=== PATIENT | female | born 1940 | race American Indian/Alaskan Native ===

== ENCOUNTER 2017-09-04 10:34 | Emergency (ER) | payer MEDICARE ==
[2017-09-04 11:17] LABS: Basophils # (Auto) 0.1 K/mm3 (0.0-0.1); Basophils % (Auto) 1.1 % (0.0-1.8); Eosinophils # (Auto) 0.2 K/mm3 (0.0-0.4); Eosinophils % (Auto) 2.9 % (0.0-4.3); Hematocrit 41.5 % (30.3-42.9); Hemoglobin 13.6 gm/dl (10.1-14.3); Lymphocytes # (Auto) 2.8 K/mm3 (1.2-5.4); Lymphocytes % (Auto) 47.3 % (13.4-35.0); Mean Corpuscular HGB Conc 33 % (30-34); Mean Corpuscular Hemoglobin 30 pg (28-32); Mean Corpuscular Volume 90 fl (79-97); Monocytes # (Auto) 0.5 K/mm3 (0.0-0.8); Monocytes % (Auto) 9.2 % (0.0-7.3); Platelet Count 272 K/mm3 (140-440); Red Cell Distribution Width 13.7 % (13.2-15.2)
[2017-09-04 11:26] LABS: Bilirubin,Urine NEG (Negative); Blood,Urine NEG (Negative); Color,Urine Yellow (Yellow); Mucus,Urine FEW /HPF; Protein,Urine <15 mg/dL mg/dL (Negative); Urobilinogen,Urine < 2.0 mg/dL (<2.0)
[2017-09-04 11:31] LABS: Calcium 9.3 mg/dL (8.4-10.2)
[2017-09-04] MEDS ORDERED: ZOFRAN IV ONE (11:51)
[2017-09-04] MEDS ORDERED: SUBLIMAZE IV ONE (11:51)
--- NOTE | 2017-09-04 11:56 | Emergency Department Report ---
HPI - General Chief Complaint: Abdominal Pain Time Seen by Provider: 09/04/17 11:38 - HPI HPI: Room 1 The patient is a 76-year-old female presenting with chief complaint of left flank pain. The patient admits she suffered from intermittent left flank pain for the past 4-5 years and states she's never been given a diagnosis. The patient states her most recent episode started approximately 2 months ago and has been constant. Patient denies nausea vomiting or diarrhea. The patient gets her pain a score of 10/10. The patient states she went to [facility] 4 days ago and had an x-ray performed. Patient states she was told she had a "pinched nerve" and given a prescription for a muscle relaxer. Patient states the pain medicine has not helped. The patient states she has an appointment to see her primary physician tomorrow but family urged her to come to the hospital given her continued pain. Patient denies any history of fever or preceding trauma. Location: Left flank Duration: [See above] Quality: Pain Severity: 10/10 Modifying factors: [see above] Context: [see above] Mode of transportation: [not driving] ED Past Medical Hx - Past Medical History Previous Medical History?: Yes Hx Hypertension: Yes Hx Renal Disease: Yes Hx Kidney Stones: Yes Additional medical history: Lung disease, KIDNEYSTONES LEFT SIDE - Surgical History Past Surgical History?: Yes Hx Cholecystectomy: Yes Additional Surgical History: Kidney stone removal with complication - Family History Family history: no significant - Social History Smoking Status: Never Smoker Substance Use Type: None - Medications Home Medications: Home Medications Medication Instructions Recorded Confirmed Last Taken Type amLODIPine [Norvasc] 10 mg PO DAILY 01/23/16 09/04/17 01/22/16 History Aspirin/Acetaminophen/Caffeine 1 each PO BID PRN 09/04/17 09/04/17 09/03/17 History [Goodlorraine's Ex-Str Powder Packet] Cyclobenzaprine [Flexeril] 10 mg PO TID PRN 09/04/17 09/04/17 09/03/17 History HYDROcodone/APAP 5-325 [[place] 1 - 2 each PO Q6HR PRN #14 tablet 09/04/17 Unknown Rx 5/325] Ibuprofen [Motrin 800 MG tab] 800 mg PO Q8HR PRN #20 tablet 09/04/17 Unknown Rx ED Review of Systems ROS: Stated complaint: KIDNEYSTONE Other details as noted in HPI Constitutional: denies: fever Eyes: denies: eye pain ENT: denies: throat pain Cardiovascular: denies: chest pain Gastrointestinal: abdominal pain. denies: nausea, vomiting, diarrhea Genitourinary: denies: dysuria Musculoskeletal: back pain Neurological: denies: headache Physical Exam - Physical Exam Vital Signs: Vital Signs 09/04/17 09/04/17 10:38 11:17 Temperature 99.2 F Pulse Rate 83 72 Respiratory 20 16 Rate Blood Pressure 182/98 Blood Pressure 165/109 [Left] O2 Sat by Pulse 99 97 Oximetry Physical Exam: GENERAL: The patient is well-developed well-nourished female lying on stretcher not appearing to be in acute distress. [] HEENT: Normocephalic. Atraumatic. Extraocular motions are intact. Patient has moist mucous membranes. NECK: Supple. Trachea midline CHEST/LUNGS: Clear to auscultation. There is no respiratory distress noted. HEART/CARDIOVASCULAR: Regular. There is no tachycardia. There is no gallop rub or murmur. ABDOMEN: Abdomen is soft, with mild discomfort to palpation in the left upper quadrant. Patient has normal bowel sounds. There is no abdominal distention. SKIN: There is no rash. There is no edema. There is no diaphoresis. NEURO: The patient is awake, alert, and oriented. The patient is cooperative. The patient has normal speech MUSCULOSKELETAL: There is no evidence of acute injury. ED Course Vital Signs 09/04/17 09/04/17 10:38 11:17 Temperature 99.2 F Pulse Rate 83 72 Respiratory 20 16 Rate Blood Pressure 182/98 Blood Pressure 165/109 [Left] O2 Sat by Pulse 99 97 Oximetry ED Medical Decision Making - Lab Data Result diagrams: 09/04/17 10:54 09/04/17 10:54 Laboratory Tests 09/04/17 09/04/17 09/04/17 10:41 10:54 10:54 WBC 5.9 RBC 4.60 Hgb 13.6 Hct 41.5 MCV 90 MCH 30 MCHC 33 RDW 13.7 Plt Count 272 Lymph % (Auto) 47.3 H [place] % (Auto) 9.2 H Eos % (Auto) 2.9 Baso % (Auto) 1.1 Lymph # 2.8 [place] # 0.5 Eos # 0.2 Baso # 0.1 Seg Neutrophils % 39.5 L Seg Neutrophils # 2.3 Sodium 135 L Potassium 4.0 Chloride 100.0 Carbon Dioxide 27 Anion Gap 12 BUN 19 H Creatinine 1.1 Estimated GFR 58 BUN/Creatinine Ratio 17 Glucose 128 H Calcium 9.3 Urine Color Yellow Urine Turbidity Clear Urine pH 6.0 Ur Specific [place] 1.015 Urine Protein <15 mg/dl Urine Glucose (UA) Neg Urine Ketones Neg Urine Blood Neg Urine Nitrite Neg Urine Bilirubin Neg Urine Urobilinogen < 2.0 Ur Leukocyte Esterase Neg Urine WBC (Auto) 1.0 Urine RBC (Auto) 1.0 U Epithel Cells (Auto) < 1.0 Urine Mucus Few - Radiology Data Radiology results: report reviewed (CT abdomen and pelvis), image reviewed (CT abdomen and pelvis) [facility] [address] [place] [address] Cat Scan Report Signed Patient: BLANCA GTZ MR#: [id number] : 1940 Acct:[id number] Age/Sex: 76 / F ADM Date: 09/04/17 Loc: ED Attending Dr: Ordering Physician: PATRICK VEE MD Date of Service: 09/04/17 Procedure(s): CT abdomen pelvis wo/w con Accession Number(s): [id number] cc: PATRICK VEE MD FINAL REPORT EXAM: CT ABDOMEN PELVIS WO/W CON HISTORY: left flank pain TECHNIQUE: Initially, CT of the abdomen and pelvis was performed without intravenous contrast. Subsequently, after the administration of intravenous contrast, CT of the abdomen and pelvis was performed in the venous phase. Subsequently, CT of the abdomen and pelvis was performed in the delayed phase. Reconstructions were included in the coronal and sagittal planes. PRIORS: None. FINDINGS: Lower thorax: Mild bibasilar atelectasis is seen. There is bronchiectasis in the left lower lobe. There is a small hiatal hernia. The visualized portions of the heart are normal. Liver: The liver is normal in attenuation. No intrahepatic biliary duct dilation. There is a small simple hepatic cyst in the central aspect of the liver between the right and left hepatic lobes. Gallbladder/ biliary system: No cholelithiasis. The common bile duct is mildly dilated measuring up to 8 millimeters. Spleen: No splenic lesions are seen. Pancreas: No pancreatic lesions are seen. No pancreatic duct dilation. Kidneys: A simple left renal cyst is seen. Small low-attenuation right renal lesion is too small to characterize but likely represents a simple cyst. Additional right superior pole renal cyst is seen. Two nonobstructing right renal calculi are seen with the largest in the superior pole measuring 5 millimeters. No ureteral filling defects. No hydronephrosis. Adrenal glands: No adrenal masses. Vasculature: The abdominal and pelvic vasculature is patent without variant anatomy. Lymph nodes: No enlarged lymph nodes are seen in the abdomen or pelvis. Bowel, mesentery, peritoneum: No bowel obstruction. No free fluid or free air. The appendix is normal. Colonic diverticulosis is seen. No evidence of diverticulitis. No bowel wall thickening. Urinary bladder: No filling defects are seen. Pelvis: Normal anatomy is noted. No masses. Abdominal wall: Small fat containing left inguinal hernia is seen. Bones: Degenerative changes are seen in the spine. IMPRESSION: 1. Mildly dilated common bile duct. Consider further evaluation with right upper quadrant ultrasound. 2. Nonobstructing right renal calculi. 3. Colonic diverticulosis without diverticulitis. 4. Several simple and probable simple bilateral renal cysts. 5. Small simple hepatic cyst. 6. Small fat containing left inguinal hernia. 7. Small hiatal hernia. Transcribed By: MG Dictated By: JEFFREY GUEVARA MD Electronically Authenticated By: JEFFREY GUEVARA MD Signed Date/Time: 09/04/171513 DD/ 13 TD/TT: 09/04/171513 - Differential Diagnosis renal colic, aortic dissection, lumbar radiculopathy, peptic ulcer disease Critical care attestation.: If time is entered above; I have spent that time in minutes in the direct care of this critically ill patient, excluding procedure time. ED Disposition Clinical Impression: Left flank pain Disposition: DC-01 TO HOME OR SELFCARE Is pt being admited?: No Does the pt Need Aspirin: No Condition: Stable Instructions: Abdominal Pain (ED) Additional Instructions: Return to the emergency department immediately should you develop worsening symptoms, fever, inability to tolerate food or liquid or any other concerns. Prescriptions: HYDROcodone/APAP 5-325 [[place] 5/325] 1 - 2 each PO Q6HR PRN #14 tablet PRN Reason: Pain Ibuprofen [Motrin 800 MG tab] 800 mg PO Q8HR PRN #20 tablet PRN Reason: Pain Referrals: PRIMARY CARE, [Primary Care Provider] - 09/04/17 (Keep your appointment to see your primary physician tomorrow.) BRUCE TREJO MD [Staff Physician] - 3-5 Days (Dr. Trejo is an orthopedic surgeon. Please follow up with him for further evaluation) Time of Disposition: 16:41
--- NOTE | 2017-09-04 15:20 | Cat Scan Report ---
FINAL REPORT EXAM: CT ABDOMEN PELVIS WO/W CON HISTORY: left flank pain TECHNIQUE: Initially, CT of the abdomen and pelvis was performed without intravenous contrast. Subsequently, after the administration of intravenous contrast, CT of the abdomen and pelvis was performed in the venous phase. Subsequently, CT of the abdomen and pelvis was performed in the delayed phase. Reconstructions were included in the coronal and sagittal planes. PRIORS: None. FINDINGS: Lower thorax: Mild bibasilar atelectasis is seen. There is bronchiectasis in the left lower lobe. There is a small hiatal hernia. The visualized portions of the heart are normal. Liver: The liver is normal in attenuation. No intrahepatic biliary duct dilation. There is a small simple hepatic cyst in the central aspect of the liver between the right and left hepatic lobes. Gallbladder/ biliary system: No cholelithiasis. The common bile duct is mildly dilated measuring up to 8 millimeters. Spleen: No splenic lesions are seen. Pancreas: No pancreatic lesions are seen. No pancreatic duct dilation. Kidneys: A simple left renal cyst is seen. Small low-attenuation right renal lesion is too small to characterize but likely represents a simple cyst. Additional right superior pole renal cyst is seen. Two nonobstructing right renal calculi are seen with the largest in the superior pole measuring 5 millimeters. No ureteral filling defects. No hydronephrosis. Adrenal glands: No adrenal masses. Vasculature: The abdominal and pelvic vasculature is patent without variant anatomy. Lymph nodes: No enlarged lymph nodes are seen in the abdomen or pelvis. Bowel, mesentery, peritoneum: No bowel obstruction. No free fluid or free air. The appendix is normal. Colonic diverticulosis is seen. No evidence of diverticulitis. No bowel wall thickening. Urinary bladder: No filling defects are seen. Pelvis: Normal anatomy is noted. No masses. Abdominal wall: Small fat containing left inguinal hernia is seen. Bones: Degenerative changes are seen in the spine. IMPRESSION: 1. Mildly dilated common bile duct. Consider further evaluation with right upper quadrant ultrasound. 2. Nonobstructing right renal calculi. 3. Colonic diverticulosis without diverticulitis. 4. Several simple and probable simple bilateral renal cysts. 5. Small simple hepatic cyst. 6. Small fat containing left inguinal hernia. 7. Small hiatal hernia.
[2017-09-04] MEDS ORDERED: NORCO 5/325 PO ONE (16:27)
[2017-09-04] MEDS ORDERED: TORADOL IV ONE (16:27)
[2017-09-04 16:42] VITALS: BP 174/109
== END 2017-09-04 17:03 | disposition home or self-care (01) ==
LOC: ED 10:34
DX: R10.9 Unspecified abdominal pain (principal); I10 Essential (primary) hypertension; Z87.442 Personal history of urinary calculi; Z90.49 Acquired absence of other specified parts of digestive tract; Z79.82 Long term (current) use of aspirin
CPT/HCPCS: 36415; 74178; 80048; 81001; 85025; 96374; 96375; 99284; J1885; J2405; J3010; Q9967

== ENCOUNTER 2021-12-31 04:38 | Observation (INO) | payer MEDICARE ==
[2021-12-31] MEDS ORDERED: FAMOTIDINE 20 MG/2 ML INJ IV ONE (05:03)
[2021-12-31] MEDS ORDERED: diphenhydrAMINE 50 MG/ML VIAL IV ONE (05:03)
[2021-12-31] MEDS ORDERED: methylPREDNISolone Sod Succinate 125 MG/2 ML INJ IV ONE (05:03)
[2021-12-31 06:08] LABS: Calcium 9.3 mg/dL (8.4-10.2)
--- NOTE | 2021-12-31 06:14 | XRay Report ---
NECK SOFT TISSUE 2 VIEW(S) INDICATION / CLINICAL INFORMATION: Tongue swelling/angioedema COMPARISON: None available. FINDINGS: EPIGLOTTIS: No significant abnormality. RETROPHARYNGEAL SOFT TISSUES: No significant abnormality. AIRWAY: No significant abnormality. RADIOPAQUE FOREIGN BODY: None. SKELETAL SYSTEM: Multilevel degenerative changes of the cervical spine are present with moderate loss of intervertebral disc space and narrowing of facet joint articulations throughout. ADDITIONAL FINDINGS: Prominence of the submandibular soft tissues could reflect hypoglossal soft tiss ue swelling in the setting of angioedema. IMPRESSION: 1. No specific abnormality of the airway demonstrated. 2. Prominence of submandibular soft tissues could reflect sequelae of patient's known angioedema. Signer Name: Kip Miller II, MD Signed: 12/31/2021 6:10 AM Workstation Name: [id number]
[2021-12-31 06:18] LABS: Basophils # (Auto) 0.1 K/mm3 (0.0-0.1); Basophils % (Auto) 0.8 % (0.0-1.8); Eosinophils # (Auto) 0.3 K/mm3 (0.0-0.4); Eosinophils % (Auto) 3.4 % (0.0-4.3); Hematocrit 39.8 % (30.3-42.9); Lymphocytes # (Auto) 2.3 K/mm3 (1.2-5.4); Mean Corpuscular HGB Conc 33 % (30-34); Mean Corpuscular Volume 92 fl (79-97); Monocytes # (Auto) 0.8 K/mm3 (0.0-0.8); Platelet Count 298 K/mm3 (140-440); Red Blood Count 4.34 M/mm3 (3.65-5.03); Red Cell Distribution Width 13.9 % (13.2-15.2)
--- NOTE | 2021-12-31 08:44 | Emergency Department Report ---
HPI - General Chief Complaint: Allergic Reaction PUI?: No Time Seen by Provider: 12/31/21 06:18 - HPI HPI: pt presents to ED with angioedema of the face, mouth, tongue, pt c/o feeling like her throat is narrowing, pt is unable to speak due to the swelling ED Past Medical Hx - Past Medical History Previous Medical History?: Yes Hx Hypertension: Yes Hx Renal Disease: Yes Hx Kidney Stones: Yes Additional medical history: Lung disease, KIDNEYSTONES LEFT SIDE - Surgical History Past Surgical History?: Yes Hx Cholecystectomy: Yes Additional Surgical History: Kidney stone removal with complication - Social History Smoking Status: Unknown if ever smoked - Medications Home Medications: Home Medications Medication Instructions Recorded Confirmed Last Taken Type amLODIPine [Norvasc] 10 mg PO DAILY 01/23/16 09/04/17 01/22/16 History Aspirin/Acetaminophen/Caffeine 1 each PO BID PRN 09/04/17 09/04/17 09/03/17 History [[facility]lorraine's Ex-Str Powder Packet] Cyclobenzaprine [Flexeril] 10 mg PO TID PRN 09/04/17 09/04/17 09/03/17 History HYDROcodone/APAP 5-325 [[place] 1 - 2 each PO Q6HR PRN #14 tablet 09/04/17 Unknown Rx 5/325] Ibuprofen [Motrin 800 MG tab] 800 mg PO Q8HR PRN #20 tablet 09/04/17 Unknown Rx ED Review of Systems ROS: Stated complaint: ALLERGIC REACTION/SWOLLEN TONGUE/THROAT Other details as noted in HPI Constitutional: denies: chills, fever Eyes: denies: eye pain, eye discharge, vision change ENT: denies: ear pain, throat pain Respiratory: denies: cough, shortness of breath, wheezing Cardiovascular: denies: chest pain, palpitations Endocrine: no symptoms reported Gastrointestinal: denies: abdominal pain, nausea, diarrhea Genitourinary: denies: urgency, dysuria, discharge Musculoskeletal: denies: back pain, joint swelling, arthralgia Skin: denies: rash, lesions Neurological: denies: headache, weakness, paresthesias Psychiatric: denies: anxiety, depression Hematological/Lymphatic: denies: easy bleeding, easy bruising Physical Exam - Physical Exam Vital Signs: Vital Signs 12/31/21 12/31/21 04:49 08:30 Temperature 98 F Pulse Rate 67 69 Respiratory 18 16 Rate Blood Pressure 190/112 Blood Pressure 162/95 156/90 [Left] O2 Sat by Pulse 100 97 Oximetry Physical Exam: angioedema of tongue noted ED Course Vital Signs 12/31/21 12/31/21 04:49 08:30 Temperature 98 F Pulse Rate 67 69 Respiratory 18 16 Rate Blood Pressure 190/112 Blood Pressure 162/95 156/90 [Left] O2 Sat by Pulse 100 97 Oximetry ED Medical Decision Making - Lab Data Result diagrams: 12/31/21 05:18 12/31/21 05:18 - Radiology Data Radiology results: report reviewed, image reviewed - Medical Decision Making steriods and antihistamine and pepcid given not getting worse but not better will admit for obs Critical care attestation.: If time is entered above; I have spent that time in minutes in the direct care of this critically ill patient, excluding procedure time. ED Disposition Clinical Impression: Angioedema Disposition: ADMITTED INPATIENT Is pt being admited?: Yes Does the pt Need Aspirin: No Condition: Stable Instructions: Angioedema, [id number]
[2021-12-31] MEDS ORDERED: oxyCODONE /ACETAMINOPHEN 5-325MG TAB PO PRN (09:38)
[2021-12-31] MEDS ORDERED: HYDROmorphone 0.5 MG/0.5 ML INJ IV PRN (09:38)
--- NOTE | 2021-12-31 09:38 | History and Physical Report ---
History of Present Illness Date of examination: 12/31/21 Date of admission: 12/31/2021 Chief complaint: Sudden swelling of tongue and throat since last night, slightly improved this morning History of present illness: 81-year-old female patient with significant past medical history of angioedema for LUIS MANUEL inhibitors, presented to the emergency room with history of swelling of tongue and fullness of throat, patient does not have any stridor or audible wheeze, saturating well on room air Patient reports that in the have changed some medications probably amlodipine Denies any itching hemodynamically stable, Patient denies chest pain or shortness of breath Denies headache dizziness weakness or numbness Denies nausea vomiting or abdominal pain X-ray neck soft tissue; no significant abnormality of the airway demonstrated prominence of submandibular soft tissue could reflect sequelae of patient's known angioedema Past History Past Medical History: hypertension, other (renal disease,kidney stones,lung disease) Past Surgical History: cholecystectomy, Other Social history: denies: smoking, alcohol abuse, prescription drug abuse Family history: denies: no significant family history Medications and Allergies Allergies Allergy/AdvReac Type Severity Reaction Status Date / Time tramadol Allergy Swelling Verified 01/23/16 13:32 LUIS MANUEL Inhibitors AdvReac Headache Verified 02/14/15 14:04 phenobarbital AdvReac Itching Verified 02/14/15 14:04 Home Medications Medication Instructions Recorded Confirmed Last Taken Type amLODIPine [Norvasc] 10 mg PO DAILY 01/23/16 12/31/21 1 Day Ago History ~12/30/21 Review of Systems Constitutional: fatigue, other, no weight loss, no weight gain, no fever, no chills Ears, nose, mouth and throat: swelling in throat, other (Angioedema/swelling tongue and floor of the mouth) Cardiovascular: no chest pain, no orthopnea, no shortness of breath Respiratory: no cough, no shortness of breath Gastrointestinal: no abdominal pain, no nausea, no vomiting Genitourinary Female: no flank pain, no dysuria Musculoskeletal: no myalgias, no arthritis Integumentary: other (Angioedema), no rash, no lesions Neurological: no seizures, no syncope Psychiatric: no anxiety, no depression Endocrine: no cold intolerance, no heat intolerance, no polydipsia, no polyuria Hematologic/Lymphatic: no easy bruising, no easy bleeding Allergic/Immunologic: angioedema Exam - Constitutional Vitals: Temp Pulse Resp BP Pulse Ox 98 F 69 16 156/90 97 12/31/21 04:49 12/31/21 08:30 12/31/21 08:30 12/31/21 08:30 12/31/21 08:30 General appearance: Present: mild distress, well-nourished - EENT Eyes: Present: PERRL, EOM intact ENT: other (Angioedema, swollen tongue, mild swelling submandibular region) - Neck Neck: Present: supple, other (Submandibular region mild swelling) - Respiratory Respiratory effort: normal Respiratory: bilateral: diminished, negative: rales, rhonchi, wheezing - Cardiovascular Rhythm: regular Heart Sounds: Present: S1 & S2 - Extremities Extremities: no ischemia, No edema - Abdominal General gastrointestinal: Present: soft, non-tender, non-distended, normal bowel sounds - Integumentary Integumentary: Present: clear, warm - Musculoskeletal Musculoskeletal: strength equal bilaterally - Psychiatric Psychiatric: appropriate mood/affect, cooperative - Neurologic Neurologic: moves all extremities Results - Labs CBC & Chem 7: 12/31/21 05:18 12/31/21 05:18 Labs: Abnormal lab results 12/31/21 12/31/21 Range/Units 05:18 05:18 [place] % (Auto) 10.0 H (0.0-7.3) % Sodium 136 L (137-145) mmol/L BUN 24 H (7-17) mg/dL Creatinine 1.9 H (0.6-1.2) mg/dL Glucose 178 H (65-100) mg/dL Assessment and Plan --Angioedema; Probably drug-induced,Patient has history of LUIS MANUEL inhibitors allergy Currently patient is not on LUIS MANUEL inhibitors, however the she reports that they changed the medicine to amlodipine Patient has no stridor. No wheeze No shortness of breath, saturating well on room air Not in acute distress IV Solu-Medrol, IV Benadryl and IV Pepcid Closely monitor for any respiratory compromise Avoid ACEI and amlodipine group of medications Patient is also allergic to phenobarbital and tramadol Overdose medications --Hypertension; IV and oral hydralazine Closely monitor blood pressures and adjust as needed --GERD; IV Pepcid and supportive care --DVT prophylaxis; SCDs, subcu Lovenox -- Full CODE STATUS We will closely monitor the patient and adjust the management as needed Oxygen titrate O2 sats more than 90% Plan of care reviewed with the patient and her nurse --
[2021-12-31] MEDS ORDERED: IBUPROFEN 600 MG TAB PO PRN (10:00)
[2021-12-31] MEDS ORDERED: ENOXAPARIN 40 MG/0.4 ML INJ SUB-Q SCH (10:00)
[2021-12-31] MEDS ORDERED: ACETAMINOPHEN 325 MG TAB PO PRN (10:00)
[2021-12-31] MEDS ORDERED: ONDANSETRON 4 MG/2 ML INJ IV PRN (10:00)
[2021-12-31] MEDS ORDERED: ENOXAPARIN 30 MG/0.3 ML INJ SUB-Q SCH (10:00)
[2021-12-31] MEDS ORDERED: SODIUM CHLORIDE 0.9% 1000 ML 1,000 ML IV SCH (10:00)
[2021-12-31] MEDS ORDERED: diphenhydrAMINE 50 MG/ML VIAL IV PRN (11:00)
[2021-12-31] MEDS ORDERED: methylPREDNISolone Sod Succinate 40 MG/1 ML INJ IV SCH (14:00)
[2021-12-31] MEDS ORDERED: EPINEPHrine 1 MG/10 ML SYRINGE ONE (15:00)
[2021-12-31] MEDS ORDERED: SODIUM BICARB 8.4% 50 MEQ/50 ML SYRINGE IV ONE (15:00)
[2021-12-31] MEDS ORDERED: CALCIUM CHLORIDE 1,000 MG/10 ML SYRINGE IV ONE (15:00)
[2021-12-31 15:14] VITALS: BP 172/100
--- NOTE | 2022-01-01 09:55 | Discharge Summary ---
Providers - Providers Date of Admission: 12/31/21 09:39 Date of discharge: 12/31/21 Attending physician: DULCE MARIA GEE Primary care physician: NAYANA MERRITT MD Hospitalization Reason for admission: Angioedema/allergic reaction unknown substance Condition: Fair Pertinent studies: Soft tissue neck x-ray no specific abnormality of the airway demonstrated Prominence of some mandibular soft tissue could reflect sequelae of patient's known angioedema Hospital course: 81-year-old female patient with significant past medical history of angioedema for LUIS MANUEL inhibitor's and multiple allergies for tramadol and phenobarbital was admitted through emergency room with sudden swelling of tongue and throat since last night in ED patient did not have any stridor or wheeze and patient was able to give history patient is saturating well on room air patient was admitted And is being managed by IV Solu-Medrol, IV Benadryl, IV Pepcid and supportive care.. Patient was still in the ED awaiting room assignment And later the nurse called me and informed that patient left AGAINST MEDICAL ADVICE. I was not present when patient left AMA Final diagnosis; --Angioedema; improved significantly Patient was on steroids, IV Benadryl, IV Pepcid No respiratory compromise --Hypertension; moderate control -- GERD; IV Pepcid --DVT prophylaxis; subcu Lovenox -- Full CODE STATUS Patient left AMA I was not present when patient left AMA Disposition: 07 LEFT AGAINST MEDICAL ADVICE Final Discharge Diagnosis (Prints w/discharge instructions): Angioedema significantly improved. Hypertension moderate control. Gastroesophageal reflux disease. DVT prophylaxis Core Measure Documentation - Palliative Care Palliative Care/ Comfort Measures: Not Applicable - Core Measures Any of the following diagnoses?: none Exam - Physical Exam Narrative exam: Patient left AMA - Constitutional Vitals: Temp Pulse Resp BP Pulse Ox 98 F 69 15 172/100 96 12/31/21 04:49 12/31/21 14:31 12/31/21 15:01 12/31/21 15:01 12/31/21 14:31 Plan Additional Instructions: Patient left AMA Follow up with: PRIMARY CAREMD [Primary Care Provider] - 7 Days Forms: AMA Form
[2022-01-01] MEDS ORDERED: FAMOTIDINE 20 MG/2 ML INJ IV SCH (10:00)
== END 2021-12-31 15:00 | disposition left against medical advice (07) ==
LOC: ED 04:38 → 4A 09:39
PROVIDERS: ADMIT Internal Medicine; ATTEND Internal Medicine
DX: T78.3XXA Angioneurotic edema, initial encounter (principal); I10 Essential (primary) hypertension; K21.9 Gastro-esophageal reflux disease without esophagitis; N28.9 Disorder of kidney and ureter, unspecified; N20.0 Calculus of kidney; J98.4 Other disorders of lung; Z90.49 Acquired absence of other specified parts of digestive tract; Z79.899 Other long term (current) drug therapy; Z98.890 Other specified postprocedural states
CPT/HCPCS: 36415; 70360; 80048; 85025; 96372; 96374; 96375; 99284; G0378; J0171; J1200; J1650; J2930; J3490